=== PATIENT | male | born 1945 | race African-American/Black ===

== ENCOUNTER → 2017-09-18 | Outpatient (CLI) | payer OTHER, MEDICAID ==
--- NOTE | 2017-09-18 13:33 | NM ---
BONE SCAN CLINICAL INDICATION: Bilateral knee pain. PROCEDURE: Approximately 2-4 hours following intravenous administration of 25.5 mCi of [id number], w hole body delayed planar images were obtained from the anterior and posterior projections. COMPARISON: None FINDINGS: There is normal by distribution of the radiotracer within the axial and appendicular skeleton. There is some mild bilateral uptake surrounding what appear to be bilateral knee prostheses. There is normal by distribution of the radiotracer within the genitourinary system and soft tissues. IMPRESSION: 1. Uptake surrounding what appear to be bilateral knee prostheses. Correlate clinically. It should b e noted that periprosthetic uptake can be normal depending on the date of patient's surgery. Reported By:
== END ==
LOC: RAD 09:00
PROVIDERS: ATTEND Specialist
DX: M25.561 Pain in right knee (principal); M25.562 Pain in left knee
CPT/HCPCS: 78306; A9503